=== PATIENT | female | born 1990 | race Caucasian/White ===

== ENCOUNTER 2016-06-25 09:59 | Outpatient (CLI) | payer OTHER ==
--- NOTE | 2016-06-26 08:29 | DIAGNOSTIC IMAGING REPORT ---
PROCEDURE: US ABDOMEN ULTRASOUND-LIMITED INDICATION: ABD WALL,BULGE,POSS HERNIA TECHNIQUE: Gilliland scale and color Doppler sonographic images of the abdomen were obtained. COMPARISON: None. FINDINGS: There is a 7 mm hypoechoic subcutaneous structure superior to the umbilicus in the midline, which appears to communicate of the umbilicus, with posterior acoustic shadowing.. There is no definite fascial defect. No evidence of a fluid collection. IMPRESSION: 1. 7 mm hypoechoic supraumbilical structure which may represent scarring. There is no definite fascial defect. Recommend CT scan for further evaluation. 2. Results discussed with Dr. Bauman
== END 2016-06-25 23:00 ==
LOC: US SRH 09:59
DX: R19.00 Intra-abdominal and pelvic swelling, mass and lump, unspecified site (principal)

== ENCOUNTER 2016-06-30 10:48 | Outpatient (CLI) | payer OTHER ==
--- NOTE | 2016-06-30 11:28 | DIAGNOSTIC IMAGING REPORT ---
PROCEDURE: CT ABDOMEN WITHOUT CONTRAST INDICATION: SUBCUTANEOUS MASS,ABD TECHNIQUE: Axial scans through the abdomen with coronal and sagittal re-formations. COMPARISON: Abdominal ultrasound 06/25/2016. FINDINGS: There is diastases of the rectus muscles with ventral bulging of the fascia but there is no focal ventral hernia.. No evidence of a ventral wall mass, inflammatory process or fluid collection corresponding to the ultrasound finding. Lung base are clear. Heart size is normal. Contracted gallbladder. Liver, pancreas, spleen, adrenal glands, kidneys and abdominal aorta are normal. Occasional descending colon diverticula. Visualized appendix is normal. Bones are unremarkable. IMPRESSION: 1. Diastasis of the rectus muscles with wide based ventral bulge of the fascia. There is no abdominal ventral wall mass. 2. Results discussed with Dr. Bauman
== END 2016-06-30 23:00 ==
LOC: CT SRH 10:48
DX: R19.00 Intra-abdominal and pelvic swelling, mass and lump, unspecified site (principal)